=== PATIENT | female | born 1950 ===

== ENCOUNTER 2020-10-08 12:22 | Emergency (ER) | payer MEDICARE ==
[2020-10-08 12:46] VITALS: BP 142/78
--- NOTE | 2020-10-08 15:12 | Emergency Department Report ---
ED Neck Pain/Injury HPI - General Chief Complaint: Neck Pain/Injury Stated Complaint: NECK/ARM PAIN Time Seen by Provider: 10/08/20 15:00 Mode of arrival: Ambulatory Limitations: No Limitations - History of Present Illness Initial Comments: 70-year-old female presents to the ER today with complaints of left-sided neck pain, and right forearm pain. Patient states that his symptoms started yesterday. She denies any particular injury or strenuous activity. She states that the pain in her neck is worse when she moves it in certain positions and with palpation. The pain in her arm is also worse with palpation and movement. She states that the pain in her neck does not radiate down into her arm. She denies any associated chest pain, shortness of breath, extremity numbness, tingling or weakness. She denies similar symptoms in the past. She states has been taking Tylenol without much relief of her pain. She denies any significant past medical history. MD Complaint: neck pain, other (right forearm pain ) -: days(s) - Related Data Previous Rx's Medication Instructions Recorded Last Taken Type Ibuprofen [Motrin] 800 mg PO Q8HR PRN #30 tablet 10/08/20 Unknown Rx methOCARBAMOL [Robaxin TAB] 750 mg PO Q8H PRN #30 tablet 10/08/20 Unknown Rx Allergies Allergy/AdvReac Type Severity Reaction Status Date / Time caffeine Allergy Unknown Verified 10/08/20 12:45 ED Review of Systems ROS: Stated complaint: NECK/ARM PAIN Other details as noted in HPI Comment: All other systems reviewed and negative Constitutional: denies: chills, fever Eyes: denies: eye pain, eye discharge, vision change ENT: denies: ear pain, throat pain, dental pain, hearing loss, epistaxis, congestion Respiratory: denies: cough, shortness of breath, SOB with exertion, SOB at rest, wheezing Cardiovascular: denies: chest pain, palpitations, dyspnea on exertion, orth opnea, edema, syncope, paroxysmal nocturnal dyspnea Gastrointestinal: denies: abdominal pain, nausea, vomiting, diarrhea, constipation, hematemesis, melena, hematochezia Genitourinary: denies: urgency, dysuria, discharge, abnormal menses, dyspareunia Musculoskeletal: arthralgia, myalgia Skin: denies: rash, lesions, change in color, change in hair/nails, pruritus Neurological: denies: headache, weakness, numbness, paresthesias, confusion, abnormal gait, vertigo Psychiatric: denies: anxiety, depression, auditory hallucinations, visual hallucinations, homicidal thoughts Hematological/Lymphatic: denies: easy bleeding, easy bruising, swollen glands ED Past Medical Hx - Past Medical History Previous Medical History?: Yes Hx Asthma: Yes - Surgical History Additional Surgical History: TL - Medications Home Medications: Home Medications Medication Instructions Recorded Confirmed Last Taken Type Ibuprofen [Motrin] 800 mg PO Q8HR PRN #30 tablet 10/08/20 Unknown Rx methOCARBAMOL [Robaxin TAB] 750 mg PO Q8H PRN #30 tablet 10/08/20 Unknown Rx ED Physical Exam - General Limitations: No Limitations General appearance: alert, in no apparent distress - Head Head exam: Present: atraumatic, normocephalic, normal inspection - Eye Eye exam: Present: normal appearance, PERRL, EOMI Pupils: Present: normal accommodation - ENT ENT exam: Present: normal exam, mucous membranes moist - Neck Neck exam: Present: normal inspection, tenderness (Patient has tenderness mainly to the left trapezius muscle and the left paraspinal muscle spasms noted. No vertebral point tenderness. She has full range of motion of the neck.), full ROM. Absent: meningismus - Respiratory Respiratory exam: Present: normal lung sounds bilaterally. Absent: respiratory distress - Cardiovascular Cardiovascular Exam: Present: regular rate, normal rhythm, normal heart sounds - GI/Abdominal GI/Abdominal exam: Present: soft. Absent: distended, tenderness, guarding, rebound - Expanded Upper Extremity Exam Right Forearm Wrist exam: Present: normal inspection, full ROM (She has full range of motion of the wrist but with some mild pain), tenderness (Patient has tenderness to palpation mainly to the volar right wrist). Absent: swelling, abrasion, laceration, ecchymosis, deformity, crepidus, dislocation, erythema, tenderness over anatomical snuff box, pain with axial thumb loading Neurosensory exam: Present: radial nerve intact, ulnar nerve intact, median nerve intact Vascular: Present: normal capillary refill. Absent: vascular compromise - Back Exam Back exam: Present: normal inspection - Neurological Exam Neurological exam: Present: alert, oriented X3, CN II-XII intact, normal gait - Psychiatric Psychiatric exam: Present: normal affect, normal mood - Skin Skin exam: Present: intact ED Course Vital Signs 10/08/20 12:44 Temperature 98.6 F Pulse Rate 68 Respiratory 20 Rate Blood Pressure 142/78 O2 Sat by Pulse 99 Oximetry ED Medical Decision Making - EKG Data EKG shows normal: sinus rhythm Rate: bradycardia (59) No standard instances [place]/QRS: left axis deviation - EKG Data Interpretation: nonspecific ST-T wave rukhsana - Medical Decision Making 70-year-old female presents to the ER today with complaints of left-sided neck pain, and right forearm pain. Patient states that his symptoms started yesterday. She denies any particular injury or strenuous activity. She states that the pain in her neck is worse when she moves it in certain positions and with palpation. The pain in her arm is also worse with palpation and movement. She states that the pain in her neck does not radiate down into her arm. She denies any associated chest pain, shortness of breath, extremity numbness, tingling or weakness, abdominal pain, nausea vomiting or diarrhea. She denies similar symptoms in the past. She states has been taking Tylenol without much relief of her pain. She denies any significant past medical history. Her history and physical suggest that her symptoms are musculoskeletal in nature at this time. EKG shows no STEMI acute ischemic changes or significant dysrhythmias. The patient is nontoxic, she is well-appearing, she is not in acute pain distress, she has no neurological deficits on exam and she has a normal gait. At this time there is no indication for any further work-up, emergent consult or admission. Her vital signs are stable. Discussed suspected diagnosis and treatment plan with patient. Recommend follow-up with primary care doctor and it technical support specialist if symptoms persist. Patient expressed understanding of instructions and agree with plan. Patient was stable at time of discharge. Critical care attestation.: If time is entered above; I have spent that time in minutes in the direct care of this critically ill patient, excluding procedure time. ED Disposition Clinical Impression: Neck muscle spasm, Tendinitis of right wrist Disposition: - TO HOME OR SELFCARE Is pt being admited?: No Does the pt Need Aspirin: No Condition: Stable Instructions: Muscle Cramps and Spasms, [id number], Tendinitis Additional Instructions: Take the Motrin, the muscle relaxer as prescribed. Use the wrist splint as discussed. If your symptoms persist you can follow-up with the it technical support specialist and/or primary care doctor listed on your discharge instructions. Return to the ER if your symptoms worsens or changes in any way Prescriptions: Ibuprofen [Motrin] 800 mg PO Q8HR PRN #30 tablet PRN Reason: Pain methOCARBAMOL [Robaxin TAB] 750 mg PO Q8H PRN #30 tablet PRN Reason: Muscle Spasm Referrals: TIANA RIVERA MD [Staff Physician] - 3-5 Days (Primary Care physician) ALTAGRACIA CHANDLER MD [Staff Physician] - 3-5 Days ([employer] [employer]) Time of Disposition: 15:12
--- NOTE | 2020-10-09 10:24 | Electrocardiograph Report ---
[facility] Test Date: 2020-10-08 Test Time: 12:52:29 Pat Name: GALE VILLAR Department: Room: Gender: F Schedule Checker: BHARGAVI : 1950 Requested By: BIJAN FRAGOSO Order Number: [id number] Reading MD: Shawn Jones Measurements Intervals [place] Rate: 59 P: 68 CO: 133 QRS: -33 QRSD: 88 T: -87 QT: 401 QTc: 399 Interpretive Statements Sinus bradycardia Probable left atrial enlargement non specific st-t No previous ECG available for comparison Electronically Signed On 10-09-2020 10:24:29 EDT by Shawn Jones
== END 2020-10-08 16:09 | disposition home or self-care (01) ==
LOC: ED 12:22
DX: M77.8 Other enthesopathies, not elsewhere classified (principal); M62.838 Other muscle spasm; J45.909 Unspecified asthma, uncomplicated; Z88.8 Allergy status to other drugs, medicaments and biological substances; Z79.899 Other long term (current) drug therapy
CPT/HCPCS: 93005